=== PATIENT | female | born 1990 | race Two or more races ===

== ENCOUNTER 2017-11-01 12:16 | Emergency (ER) | payer OTHER ==
[2017-11-01] MEDS ORDERED: TDAP ADULT 0.5 ML INJ (BOOSTRIX) IM ONE (12:35)
--- NOTE | 2017-11-01 12:38 | EDPHY ---
H & P Time Seen by Provider: 11/01/17 12:25 HPI/ROS: CHIEF COMPLAINT: Laceration right index finger HISTORY OF PRESENT ILLNESS: 26-year-old female with out-of-date tetanus arrives via private vehicle complaining of accidental laceration right index finger distal phalanx palmar aspect when her finger caught in a sharp metallic, generally clean object at work. She is complaining of decreased sensation distally. Occurred shortly prior to arrival PHYSICAL EXAM (Prior to examination, patient consented to physical exam, hands were washed and my usual and customary physical exam procedures followed) 1) GENERAL: Well-developed, well-nourished, alert and oriented. Appears to be in no acute distress. 2) HEAD: Normocephalic 3) HEENT: sclera anicteric 4) LUNGS: Breathing comfortably. 5) SKIN: Right index finger distal phalanx palmar aspect flap laceration with hinge of flap on the distal aspect. Laceration measures 1.5 cm. She has a viable tissue in the distal flap. 6) MUSCULOSKELETAL: FDP FDS function intact . No signs of infection or gross foreign bodies. 7) NEUROLOGIC: Decreased sensation distal to the laceration Smoking Status: Current every day smoker Constitutional: Initial Vital Signs Temperature (C) 36.7 C 11/01/17 12:19 Heart Rate 74 11/01/17 12:19 Respiratory Rate 18 11/01/17 12:19 Blood Pressure 150/108 H 11/01/17 12:19 O2 Sat (%) 100 11/01/17 12:19 O2 Delivery Mode Room Air Allergies/Adverse Reactions: No Known Allergies Allergy (Unverified 11/01/17 12:19) Home Medications: Medication Instructions Recorded Cephalexin [Keflex] 500 mg PO TID 7 Days cap 11/01/17 Nuva Ring 11/01/17 MDM/Departure - MDM Imaging Results: Imaging Impressions Finger X-Ray 11/01/17 12:35 Impression: Possible punctate radiopaque foreign body.. Procedures: Procedure: Laceration repair. I explained the indications, risks and benefits for both laceration repair and anesthetic administration. Verbal consent was obtained from the patient. The laceration on the right index finger was anesthetized using 0.5% bupivicaine without epinephrine digital nerve block. After anesthetic administered the patient was observed for a period of time and had no apparent adverse effects. The wound was cleaned, prepped, draped in normal sterile fashion and explored to its base. No foreign body seen, no foreign bodies palpated. There were no deep structures involved. No tendon injury was identified. The wound was loosely closed with 3 simple interrupted 5 O Ethilon sutures The wound repair was simple. The procedure was performed by myself. Patient has been informed that scarring will occur, although efforts have been made to minimize this. Medications Given: Discontinued Medications Diphtheria/Tetanus/Acell Pertussis (Boostrix) 0.5 ml IM .ONCE ONE Stop: 11/01/17 12:36 Last Admin: 11/01/17 12:58 Dose: 0.5 ml ED Course/Re-evaluation: Re-evaluation with serial exams. Discussed the imaging studies with the patient. On x-ray there is a possible punctate foreign body which was not visualize or palpate on examination. I have loosely close this wound and allowed room for drainage and I am starting the patient on prophylactic antibiotics. She has been informed that if at any point she develops erythema or swelling she is to return to the ER for re-evaluation. Recommend follow up with Hand surgery. I do not think that emergent hand surgery consultation is indicated. She feels comfortable being discharged. All questions and concerns addressed by myself. I saw this patient independently based on established practice protocols. Care of patient under supervision of primary secondary supervising physician Dr Cooney . - Depart Disposition: Home, Routine, Self-Care Clinical Impression: Laceration of right index finger Qualifiers: Encounter type: initial encounter Damage to nail status: without damage Foreign body presence: unspecified Qualified Code(s): S61.210A - Laceration without foreign body of right index finger without damage to nail, initial encounter Condition: Good Instructions: Care For Your Stitches (ED), Laceration (ED) Additional Instructions: Return to the ER if you develop redness, swelling, discharge, warmth to the wound, red streaks going up your arm, or any other symptoms that concern you. Your sutures should be removed in 10 days. Stand Alone Forms: Work Comp Follow Up Prescriptions: Cephalexin [Keflex] 500 mg PO TID 7 Days cap Referrals: Arabella Luu MD [Medical Doctor] - 1-2 days without fail
[2017-11-01 14:19] VITALS: BP 145/85
== END 2017-11-01 14:19 | disposition home or self-care (01) ==
PROC: 0HQFXZZ Repair Right Hand Skin, External Approach (ICD-10-PCS; principal; 2017-11-01)
DX: S61.210A Laceration without foreign body of right index finger without damage to nail, initial encounter (principal); F17.200 Nicotine dependence, unspecified, uncomplicated; Z23 Encounter for immunization; W26.8XXA Contact with other sharp object(s), not elsewhere classified, initial encounter; Y99.0 Civilian activity done for income or pay; Y93.89 Activity, other specified